=== PATIENT | male | born 1960 | race Caucasian/White ===

== ENCOUNTER → 2019-01-11 19:45 | Outpatient (REF) | payer OTHER, SELFPAY ==
[2019-01-12 03:06] LABS: Alanine Aminotransferase 37 IU/L (21-72); Albumin 3.4 g/dL (3.5-5.0); Albumin Globulin Ratio 1.3 (1.0-2.8); Alkaline Phosphatase 59 U/L (38-126); Aspartate Aminotransferase 17 IU/L (17-59); Bilirubin Total 0.1 mg/dL (0.2-1.3); Blood Urea Nitrogen 10 mg/dL (9-20); Calcium 8.9 mg/dL (8.4-10.2); Carbon Dioxide 27 mmol/L (22-32); Chloride 101 mmol/L (98-107); Estimated Glomerular Filt Rate > 60.0 mL/min (>60); Globulin 2.7 g/dL (1.7-4.1); Glucose 120 mg/dL (70-100); HEMOLYSIS < 15 (0-50); Potassium 4.8 mmol/L (3.4-5.1); Sodium 138 mmol/L (137-145); Total Protein 6.1 g/dL (6.3-8.2)
[2019-01-12 03:26] LABS: Basophils Absolute Auto 100 /uL (0-100); Basophils Percent Auto 0.8 % (0-2); Eosinophils Absolute Auto 300 /uL (0-450); Eosinophils Percent Auto 2.8 % (2-4); Hematocrit 33.9 % (41-53); Hemoglobin 11.3 g/dL (13.5-17.5); Lymphocytes Absolute Auto 2700 /uL (1100-4500); Lymphocytes Percent Auto 29.6 % (25-40); Mean Corpuscular HGB Conc 33.2 % (30-36); Mean Corpuscular Hemoglobin 29.4 PG (26-34); Mean Corpuscular Volume 88.7 fL (80-100); Monocytes Absolute Auto 700 /uL (0-900); Monocytes Percent Auto 7.8 % (3-14); Neutrophils Absolute Auto 5400 /uL (1500-7000); Platelet Count 278 X10^3/uL (150-400); Red Blood Cell Count 3.83 X10^6/uL (4.5-5.9); White Blood Cell Count 9.2 X10^3/uL (4.5-11.0)
[2019-01-12 04:02] LABS: Add Manual Diff / Slide Review SLIDE REVIEW
[2019-01-12 04:04] LABS: RBC Morphology Normal Morphology
== END ==
LOC: LAB 19:45
PROVIDERS: Family Provider Family Medicine Geriatric Medicine; PCP Family Medicine Geriatric Medicine; Visit Provider Family Medicine Geriatric Medicine
DX: L02.01 Cutaneous abscess of face (principal)
CPT/HCPCS: 36415; 80053; 85025; 86140

== ENCOUNTER 2021-02-02 09:37 | Day surgery (SDC) | payer MEDICARE, SELFPAY ==
[2021-02-02] VITALS (8 sets, daily range): BP systolic 119–148; BP diastolic 66–79; PULSE 81–97; RESP 14–18; TEMP 36.1–36.9; O2SAT 95–97; BMI 30.8
[2021-02-02] MEDS: LACTATED RINGERS 1,000 ML 200 ML IV (10:34)
--- NOTE | 2021-02-02 11:16 | PM.PREOP ---
Pre-operative Note Interval Note History & Physical reviewed/Exam performed by Physician: Yes Changes to H&P: No ASA Class (for procedural sedation): II
--- NOTE | 2021-02-02 11:44 | P.OP.ENDO_ITS ---
Operative Date/Time/Diagnoses Date of procedure: 02/02/21 Time of procedure: 11:44 Pre-op diagnosis: Esophageal dysphagia Post-op diagnosis: other (Gastroparesis) Procedure & Clinicians Study performed: Esophagoduodenoscopy Aborted colonoscopy Same procedure as scheduled: Yes Indications: Screening colonoscopy, esophageal dysphagia Surgeon: Eduard Bustillo Procedure Notes Procedure in detail: Patient placed in left lateral decubitus position. Time out was performed. Procedural sedation was administered with Versed and Fentanyl. A bite block was placed. the scope was inserted into the mouth and advanced through the esophagus and into the stomach. There was no stricture within the esophagus. The stomach was notable for retained food and liquid content despite being NPO suspect this was secondary to gastroparesis. The pylorus was intu bated and the duodenum was normal to the 2nd portion. The scope was retroflexed within the stomach and there was no hiatal hernia. No ulcers, or gastritis. The scope was withdrawn into the esophagus the Z line was seen at 40 cm from the incisions. There was no Ya's esophagitis or masses or strictures. Stomach was desufflated and scope removed. Examination began with a thorough inspection of the perianal area there was no evidence of fissures, fistulae, external hemorrhoids or cutaneous malignancy. The colonoscopy scope was then placed into the anal canal and advanced forward. There was a large amount of stool stool within the colon I was unable to adequately visualize the lumen of the colon a despite copious irrigation. Colonoscopy was aborted. Sedation time 25 minutes Impression: Gastroparesis Post-procedure Plan for aftercare: Start Reglan as prescribed Disposition: same day surgery
== END 2021-02-02 12:38 | disposition home or self-care (01) ==
PROVIDERS: Family Provider Family Medicine Geriatric Medicine; PCP Family Medicine Geriatric Medicine; Referring Provider Surgery; Visit Provider Surgery
PROC: 0DJ08ZZ Inspection of Upper Intestinal Tract, Via Natural or Artificial Opening Endoscopic (ICD-10-PCS; CPT 43235; principal; 2021-02-02 10:45)
PROC: 0DJD8ZZ Inspection of Lower Intestinal Tract, Via Natural or Artificial Opening Endoscopic (ICD-10-PCS; CPT 45378; 2021-02-02 10:45)
DX: Z12.11 Encounter for screening for malignant neoplasm of colon (principal); R13.14 Dysphagia, pharyngoesophageal phase; E11.9 Type 2 diabetes mellitus without complications; Z79.4 Long term (current) use of insulin; K21.9 Gastro-esophageal reflux disease without esophagitis; K31.84 Gastroparesis; Z53.09 Procedure and treatment not carried out because of other contraindication
CPT/HCPCS: 43235; G0121; 99152; 99153